=== PATIENT | female | born 1940 | race Two or more races ===

== ENCOUNTER 2022-09-01 13:34 | Inpatient (IN) | payer MEDICARE, OTHER ==
[~2022-09-01] VITALS: Ht 152.4 cm; Wt 51.3 kg
[~2022-09-01 13:34] MED LIST: AMLO5TAB4
--- NOTE | 2022-09-01 14:12 | NUR ---
BIB C/O BLURRING OF VISION TO BOTH EYES, DIZZINESS SINCE FRIDAY S/P FINISHING Z PACK FOR TONSILITIS. AMBULATORY, PLACED IN BED, DENIES DIZZINESS.
--- NOTE | 2022-09-01 15:30 | NUR ---
FOOT ORTHOPEDIST AT BEDSIDE
[2022-09-01 16:03] LABS: BASOPHILS # (AUTO) 0.1 K/uL (0.0-0.2); BASOPHILS % (AUTO) 1.3 % (0.0-2.0); EOSINOPHILS % (AUTO) 1.2 % (0.0-6.0); HEMATOCRIT 41 % (33-45); HEMOGLOBIN 13.1 g/dL (11.5-14.8); LYMPHOCYTES # (AUTO) 1.4 K/uL (0.8-4.8); LYMPHOCYTES % (AUTO) 25.5 % (20.0-44.0); MEAN CORPUSCULAR HGB CONC 32 g/dl (31.0-36.0); MEAN CORPUSCULAR VOLUME 95 fL (82-100); MONOCYTES # (AUTO) 0.5 K/uL (0.1-1.30); MONOCYTES % (AUTO) 10.1 % (2.0-12.0); NEUTROPHILS # (AUTO) 3.3 K/uL (1.8-8.9); NEUTROPHILS % (AUTO) 61.9 % (43.0-81.0); PLATELET COUNT (AUTO) 336 K/uL (150-450); WHITE BLOOD COUNT (AUTO) 5.4 K/uL (4.3-11.0)
[2022-09-01 16:38] LABS: CALCIUM, SERUM 9.5 mg/dL (8.5-10.1); CARBON DIOXIDE 27 mmol/L (21-32); CHLORIDE 100 mmol/L (98-107); CREATININE 0.8 mg/dL (0.6-1.3); GLUCOSE 136 mg/dL (74-106); POTASSIUM 4.5 mmol/L (3.5-5.1); SODIUM SERUM 135 mmol/L (136-145); UREA NITROGEN, BLOOD 14 mg/dL (7-18)
[2022-09-01] MEDS ORDERED: IV NS 0.9% 250 ML IV ONE (17:03)
[2022-09-01] MEDS ORDERED: IOHEXOL-350 100 ML VIAL IV ONE (17:03)
--- NOTE | 2022-09-01 18:28 | NUR ---
CALLED DR SORTO FOR CONSULT, NO ANSWER. LEFT MESSAGE.
--- NOTE | 2022-09-01 18:35 | NUR ---
CALLED DR. FAIR [phone] X [phone]. LEFT , DR. PANCHAL.
--- NOTE | 2022-09-01 18:44 | NUR ---
DR. SIDDIQUI SPEAKING WITH DR. TESFAYE.
[2022-09-01] MEDS ORDERED: ASPIRIN 325 MG TABLET PO ONE (19:00)
[2022-09-01] MEDS ORDERED: ASPIRIN 325 MG TABLET ONE (19:02)
[2022-09-01] MEDS ORDERED: ACETAMINOPHEN 325 MG TABLET PO PRN (19:30)
[2022-09-01] MEDS ORDERED: INSULIN REGULAR, HUMAN 100 UNIT/ML 3 ML VIAL SQ PRN (19:30)
[2022-09-01] MEDS ORDERED: ONDANSETRON HCL/PF 4 MG/2 ML VIAL IVP PRN (19:30)
[2022-09-01] MEDS ORDERED: IV NS 0.9% 1,000 ML IV PRN (19:30)
[2022-09-01] MEDS ORDERED: Z GUARD REMEDY 4 OZ OINT TP PRN (19:30)
[2022-09-01] MEDS ORDERED: DEXTROSE 50%-WATER 50 ML DISP.SYRIN IV PRN (19:30)
[2022-09-01] MEDS ORDERED: MAGNESIUM HYDROXIDE 30 ML UDC PO PRN (19:30)
[2022-09-01] MEDS ORDERED: ZOLPIDEM TARTRATE 5 MG TABLET PO PRN (19:30)
[2022-09-01] MEDS ORDERED: MAG HYDROX/AL HYDROX/SIMETH 30 ML UDC PO PRN (19:30)
[2022-09-01] MEDS ORDERED: hydrALAZINE HCL IV 20 MG VIAL IV PRN (19:30)
[2022-09-01] MEDS ORDERED: ANAS1TAB50 PO (19:41)
[2022-09-01] MEDS ORDERED: MAGN250T10 PO (19:41)
[2022-09-01] MEDS ORDERED: LOSA100T31 PO (19:41)
[2022-09-01] MEDS ORDERED: METF-881 PO (19:41)
[2022-09-01] MEDS ORDERED: ROSU20TA32 PO (19:41)
[2022-09-01] MEDS ORDERED: OMEG1CAP PO (19:41)
[2022-09-01] MEDS ORDERED: LEVO75TA7 PO (19:41)
--- NOTE | 2022-09-01 20:30 | NUR ---
PROVIDED PT WITH MEAL; TOLERATING WELL
--- NOTE | 2022-09-01 21:26 | NUR ---
BED 112-2
--- NOTE | 2022-09-01 21:32 | NUR ---
REPORT GIVEN TO MICHEAL THOMPSON ROOM 109 FOR FLORINDA
--- NOTE | 2022-09-01 21:45 | NUR ---
PATIENT TRANSFERED AND ADMITTED PER [facility]
--- NOTE | 2022-09-01 21:49 | NUR ---
STUDIO DIRECTORCERTIFIED CAREGIVER NOTE PT TRANSPORTED TO UNIT VIA GURNEY AT THIS TIME. PT ADMITTED FROM ER TO TELE UNDER DR FAIR FOR ADMITTING DX CVA. A/O X 4 AND ABLE TO MAKE NEEDS KNOWN. PT STABLE ON ROOM AIR, SATURATING 99%. NO SOB OR S/S OF RESPIRATORY DISTRESS. BREATHING EVEN AND UNLABORED. ON EXTERNAL PRODUCT DEVELOPMENT WORKER READING SB 58 BPM. IV ACCESS RAC 18G, INTACT AND PATENT. AMBULATORY WITH ASSIST. COMPLAINT OF BLURRED VISION OF R EYE, PT REQUESTED EYE TO BE COVERED. COVERED R EYE WITH GAUZE AND PT STATED "MY VISION IS NOT BLURRED ANYMORE". NO COMPLAINTS OF PAIN OR DISCOMFORT AT THIS TIME. SKIN INTACT. ORIENTED TO UNIT, ROOM, AND STAFF. PT BELONGINGS ACCOUNTED FOR AND BELONGINGS LIST SIGNED. SAFETY PRECAUTIONS IN PLACE. BED IN LOWEST LOCKED POSITION, HOB ELEVATED, SIDE RAILS UP X2, AND CALL LIGHT AND TABLE WITHIN REACH. ALL NEEDS MET AT THIS TIME.
[2022-09-01 21:50] VITALS: BP 204/74
[2022-09-01] MEDS ORDERED: BLOOD SUGAR DIAGNOSTIC 1 EACH STRIP IN SCH (22:00)
[2022-09-01] MEDS ORDERED: ENOXAPARIN SODIUM 40 MG/0.4 ML DISP.SYRIN SQ SCH (22:00)
[2022-09-01 22:40] VITALS: BP 177/78
[2022-09-01] MEDS: BLOOD SUGAR DIAGNOSTIC 1 EACH STRIP IN SCH (22:46)
[2022-09-02] VITALS: BP 133/68
[2022-09-02] MEDS ORDERED: BLOOD SUGAR DIAGNOSTIC 1 EACH STRIP IN SCH
[2022-09-02 04:00] VITALS: BP 140/75
--- NOTE | 2022-09-02 06:37 | NUR ---
RN NOTE PT COMPLAINING OF MILD HEADACHE. ADMINISTERED TYLENOL 650 MG FOR MILD PAIN. WARM BLANKET PROVIDED. ALL NEEDS MET AT THIS TIME.
--- NOTE | 2022-09-02 06:55 | NUR ---
IT CONSULTANT CLOSING NOTE PT AWAKE IN BED, DAUGHTER AT BEDSIDE. A/O X 4 AND ABLE TO MAKE NEEDS KNOWN. PT STABLE ON ROOM AIR, SATURATING 99%. NO SOB OR S/S OF RESPIRATORY DISTRESS. BREATHING EVEN AND UNLABORED. ON EXTERNAL NEW MEDIA STRATEGIST READING SR 66 BPM WITH 1ST DEGREE AV BLOCK. IV ACCESS RAC 18G, INTACT AND PATENT, RUNNING NS @ 75 ML/HR. NOTED WITH 1 EPISODE OF EMESIS. ADMINISTERED ZOFRAN 4 MG FOR N/V. ALL DUE MEDS GIVEN ORDERED. NEURO CHECKS Q4H. SAFETY PRECAUTIONS IN PLACE AT ALL TIMES. BED IN LOWEST LOCKED POSITION, HOB ELEVATED, SIDE RAILS UP X2, AND CALL LIGHT AND TABLE WITHIN REACH. ALL NEEDS MET AT THIS TIME AND WILL ENDORSE TO ONCOMING NURSE FOR FLORINDA.
[2022-09-02 07:01] LABS: BASOPHILS # (AUTO) 0.1 K/uL (0.0-0.2); BASOPHILS % (AUTO) 1.1 % (0.0-2.0); EOSINOPHILS % (AUTO) 0.7 % (0.0-6.0); HEMATOCRIT 37 % (33-45); HEMOGLOBIN 12.3 g/dL (11.5-14.8); LYMPHOCYTES # (AUTO) 1.4 K/uL (0.8-4.8); LYMPHOCYTES % (AUTO) 21.1 % (20.0-44.0); MEAN CORPUSCULAR HGB CONC 34 g/dl (31.0-36.0); MEAN CORPUSCULAR VOLUME 93 fL (82-100); MONOCYTES # (AUTO) 0.6 K/uL (0.1-1.30); MONOCYTES % (AUTO) 8.9 % (2.0-12.0); NEUTROPHILS # (AUTO) 4.5 K/uL (1.8-8.9); NEUTROPHILS % (AUTO) 68.2 % (43.0-81.0); PLATELET COUNT (AUTO) 310 K/uL (150-450); RED BLOOD CELL COUNT(AUTO) 3.91 MIL/uL (4.0-5.2); WHITE BLOOD COUNT (AUTO) 6.5 K/uL (4.3-11.0)
[2022-09-02 07:07] LABS: CALCIUM, SERUM 8.7 mg/dL (8.5-10.1); CARBON DIOXIDE 23 mmol/L (21-32); CHLORIDE 100 mmol/L (98-107); CREATININE 0.7 mg/dL (0.6-1.3); GLUCOSE 152 mg/dL (74-106); MAGNESIUM 2.2 mg/dL (1.8-2.4); PHOSPHORUS 3.4 mg/dL (2.5-4.9); POTASSIUM 3.9 mmol/L (3.5-5.1); SODIUM SERUM 133 mmol/L (136-145); UREA NITROGEN, BLOOD 14 mg/dL (7-18)
[2022-09-02 07:09] LABS: CHOLESTEROL 96 mg/dL (<200); HDL CHOLESTEROL 50 mg/dL (40-60); LDL 46 mg/dL (0-99); TRIGLYCERIDES 96 mg/dL (30-150)
[2022-09-02] MEDS ORDERED: PANTOPRAZOLE 40 MG TABLET.DR PO SCH (07:30)
[2022-09-02] MEDS: BLOOD SUGAR DIAGNOSTIC 1 EACH STRIP IN SCH ×2 (07:45→11:50)
--- NOTE | 2022-09-02 07:46 | NUR ---
COIL REPAIR TECHNICIAN OPENING NOTE PT AWAKE IN BED, DAUGHTER AT BEDSIDE. A/O X 4 AND ABLE TO MAKE NEEDS KNOWN. PT STABLE ON ROOM AIR, SATURATING 99%. NO SOB OR S/S OF RESPIRATORY DISTRESS. BREATHING EVEN AND UNLABORED. ON EXTERNAL MARINE SURVEYOR READING SR 66 BPM WITH 1ST DEGREE AV BLOCK. IV ACCESS RAC 18G, INTACT AND PATENT, RUNNING NS @ 75 ML/HR. SAFETY PRECAUTIONS IN PLACE AT ALL TIMES. BED IN LOWEST LOCKED POSITION, HOB ELEVATED, SIDE RAILS UP X2, AND CALL LIGHT AND TABLE WITHIN REACH. WILL CONTINUE TO MONITOR.
[2022-09-02 08:00] VITALS: BP 172/87
[2022-09-02] MEDS ORDERED: LEVOTHYROXINE SODIUM 75 MCG TABLET PO SCH (09:00)
[2022-09-02] MEDS ORDERED: LOSARTAN POTASSIUM 50 MG TABLET PO SCH (09:00)
[2022-09-02] MEDS ORDERED: ASPIRIN 325 MG TABLET PO SCH (09:00)
--- NOTE | 2022-09-02 09:14 | NUR ---
RN NOTE OBTAINED CONSENT FOR MRI OF BRAIN WO CONTRAST, AND MRI QUESTIONAIRRE COMPLETE, PLACED IN CHART. CONTACTING MRI TRAILER FOR ESTIMATED TIME FOR TUNNEL KILN FIRER.
--- NOTE | 2022-09-02 10:03 | NUR ---
RN NOTE PATIENT PICKED UP BY [facility] FOR MRI AT THIS TIME, VIA WHEELCHAIR.
--- NOTE | 2022-09-02 11:10 | NUR ---
RN NOTE PATIENT RETURNED FROM MRI AT THIS TIME.
[2022-09-02 12:00] VITALS: BP 179/76
[2022-09-02] MEDS ORDERED: ASPI-1420 PO (14:47)
--- NOTE | 2022-09-02 16:09 | NUR ---
RN NOTE PATIENT DISCHARGED AT THIS TIME, ACCOMPANIED BY ABIODUN ROSE TO DAUGHTER'S CAR IN HOSPITAL LOBBY. TELEBOX REMOVED, ID BAND REMOVED, IV ACCESS REMOVED, NO S/S BLEEDING NOTED. PATIENT ACKNOWLEDGED AND SIGNED DISCHARGE PACKET. CHARGE NURSE AWARE.
[2022-09-02] MEDS ORDERED: METFORMIN XR 500 MG TAB.SR.24H PO SCH (18:00)
[2022-09-02] MEDS ORDERED: ATORVASTATIN 40 MG TABLET PO SCH (18:00)
[2022-09-02] MEDS ORDERED: SIMVASTATIN 20 MG TABLET PO SCH (22:00)
== END 2022-09-02 16:10 | disposition home or self-care (01) | DRG 69 ==
LOC: ER 14:02 → TELE1 21:27
PROVIDERS: ADMIT Legal Medicine; ATTEND Legal Medicine
DX: G45.9 Transient cerebral ischemic attack, unspecified (principal); I10 Essential (primary) hypertension; E11.9 Type 2 diabetes mellitus without complications; E78.5 Hyperlipidemia, unspecified; Z79.82 Long term (current) use of aspirin; Z79.84 Long term (current) use of oral hypoglycemic drugs; E03.9 Hypothyroidism, unspecified; Z79.899 Other long term (current) drug therapy; Z86.73 Personal history of transient ischemic attack (TIA), and cerebral infarction without residual deficits; Z85.3 Personal history of malignant neoplasm of breast; H49.22 Sixth [abducent] nerve palsy, left eye; R29.700 NIHSS score 0
CPT/HCPCS: 36415; 70450-TC; 70496-TC; 70498-TC; 70551-TC; 80048-TC; 80061-TC; 82962-TC; 83735-TC; 84100-TC; 84484-TC; 85025-TC; 85730-TC; 87081-TC; 92526; 92611-TC; 93307-TC; 93880-TC; 97116-TC; 97530-TC; A4223; C9803; G0378; J0360; J1650; J1815; J2405; J7030; J7050; Q9967